=== PATIENT | female | born 1960 | race Two or more races ===

== ENCOUNTER 2023-07-17 08:10 | Day surgery (SDC) | payer OTHER ==
[2023-07-17] MEDS ORDERED: MIDAZOLAM HCL 2 MG/2 ML VIAL IV ONE (12:15)
[2023-07-17] MEDS ORDERED: ONDANSETRON HCL 2 MG/ML VIAL IV ONE (12:15)
[2023-07-17] MEDS ORDERED: fentaNYL CITRATE 50 MCG/ML AMPUL IV PUSH ONE (12:15)
[2023-07-17] MEDS ORDERED: DIPHENHYDRAMINE HCL 50 MG/ML VIAL 1ML IV ONE (12:15)
== END 2023-07-18 15:05 | disposition home or self-care (01) ==
LOC: AMB-ENDOS 08:10 → CIR.AMB 13:30 → AMB-ENDOS 07-18 15:05
PROVIDERS: ATTEND Colon & Rectal Surgery
DX: K57.30 Diverticulosis of large intestine without perforation or abscess without bleeding (principal); K64.8 Other hemorrhoids